=== PATIENT | female | born 1950 | race Caucasian/White ===

== ENCOUNTER 2018-09-17 10:17 | Outpatient (AMBR) | payer MEDICARE, MEDICAID, SELFPAY ==
--- NOTE | 2018-09-17 10:39 | PT.OIERPT ---
PT OP Initial Eval Patient Information Visit Reasons: hip pain Medical Diagnosis: M25.551 Treatment Dx #1: R LE pain Start of Care: 09/17/18 Date of Onset: 3 months ago Initial Assessment Subjective Pt is 68 yr old female who c/o R LE pain from the hip down to the knee and the mid-tibia x3 months, not sure how it started. She says she can walk but it starts hurting after about 1-2 blocks. She has Hx of R knee sx x3 yrs and she gets shots in that knee. PLOF: full functional mobility without limit for ADL's and IADL's. She was walking about 2 miles a day. She lives with her and is on disability for her back issues. 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 PMH: HTN, thyroid disorder, R knee sx, Imaging: X-rays of R hip with provider Pt goal: for the pain to go away to walk at [employer] and stand longer Objective R hip AROM: Flexion: 80 deg Abduction: 15 deg SLR: 23 deg with pain in hip flexors Knee ArOM: Flexion: 90 deg Extension: full Trunk AROM: Extension: 20% SB: R full L: 80% with R hip pain provoked TTP: moderate of B SI joints and L5-S1 paraspinals Special testing: Hip scour: negative Hip IR: pain provoked with hip IR Lateral hip shear: negative Assessment Pt presents with limited hip flexor strength and pain is provoked deep in hip joint with hip IRot PROM and trunk SB to the L consistent with hip OA. Pt has limited hip strength, ROM and functional mobility due to pain. PT recommends further diagnostic imaging of R hip and L/S such as MRI due to high intensity of ssx and its impact on sleep and functional mobility. She has Hx of L/S injury so it may be radicular pain radiating into the LE but Pt has negative R SLR testing. Pt not likely to benefit from therapy at this time. 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
--- NOTE | 2018-09-17 10:42 | PTNOTE_ITS ---
PT OP Initial Eval Patient Information Visit Reasons: hip pain Medical Diagnosis: M25.551 Treatment Dx #1: R LE pain Start of Care: 09/17/18 Date of Onset: 3 months ago Initial Assessment Subjective Pt is 68 yr old female who c/o R LE pain from the hip down to the knee and the mid-tibia x3 months, not sure how it started. She says she can walk but it starts hurting after about 1-2 blocks. She has Hx of R knee sx x3 yrs and she gets shots in that knee. PLOF: full functional mobility without limit for ADL's and IADL's. She was walking about 2 miles a day. She lives with her and is on disability for her back issues. 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 PMH: HTN, thyroid disorder, R knee sx, Imaging: X-rays of R hip with provider Pt goal: for the pain to go away to walk at [employer] and stand longer Objective R hip AROM: Flexion: 80 deg Abduction: 15 deg SLR: 23 deg with pain in hip flexors Knee ArOM: Flexion: 90 deg Extension: full Trunk AROM: Extension: 20% SB: R full L: 80% with R hip pain provoked TTP: moderate of B SI joints and L5-S1 paraspinals Special testing: Hip scour: negative Hip IR: pain provoked with hip IR Lateral hip shear: negative Assessment Pt presents with limited hip flexor strength and pain is provoked deep in hip joint with hip IRot PROM and trunk SB to the L consistent with hip OA. Pt has limited hip strength, ROM and functional mobility due to pain. PT recommends further diagnostic imaging of R hip and L/S such as MRI due to high intensity of ssx and its impact on sleep and functional mobility. She has Hx of L/S injury so it may be radicular pain radiating into the LE but Pt has negative R SLR testing. Pt not likely to benefit from therapy at this time. Short Term and Piano Mover Goals Follow up with provider Eval and D/C Treatment Plan Eval and D/C Certification Dates: 09/17/18 to 10/15/18 Office Procedures PT Procedures PT Date of Service: 09/17/18 OP PT Eval Mod Complex 30 minutes: Yes
== END 2018-09-20 23:59 | disposition home or self-care (01) ==
PROVIDERS: PCP Physician Assistant Medical; Referring Provider Physician Assistant Medical; Visit Provider Physician Assistant Medical
DX: M25.551 Pain in right hip (principal)
CPT/HCPCS: 97162

== ENCOUNTER 2024-06-25 09:21 | Outpatient (AMB) | payer MEDICARE, SELFPAY ==
--- NOTE | 2024-06-25 09:39 | ORTHONT_ITS ---
Vital signs 06/25/24 09:40 Height 1.55 m Height Method Stated Weight 110.875 kg Weight Measurement Method Standing Scale BMI 46.1 BP 165/91 H Blood Pressure Source Automatic Cuff Blood Pressure Location Right Upper Arm Position Sitting Respiration 18 Pulse 93 Pulse Source Monitor Temp 97.6 F Temp Source Temporal Artery Scan Pulse Oximetry (%) 96 Oxygen Delivery Method Room Air Med/Allergies Allergies & Medications Allergies No Known Allergies Allergy (Verified 06/25/24 09:41) Medication Reconciliation atenolol 50 mg tablet 50 mg PO DAILY ##0 12/27/12 [History Confirmed 06/25/24] levothyroxine 200 mcg tablet (Levoxyl) 200 mcg PO DAILY ##0 12/27/12 [History Confirmed 06/25/24] lorazepam 2 mg tablet 2 mg PO TID NEEDED ##0 12/27/12 [History Confirmed 06/25/24] zolpidem 10 mg tablet (Ambien) 10 mg PO AT BEDTIME ##0 12/27/12 [History Confirmed 06/25/24] triamterene 37.5 mg-hydrochlorothiazide 25 mg tablet 1 tab PO QDAY 08/22/19 [History Confirmed 06/25/24] Subjective Visit Visit for: follow up visit, knee and injections Immunization / Flu Flu Vaccine in the Last 12 Months: No Flu Vaccine Exclusion Criteria: No Exclusion Criteria History of Present Illness Chief complaint: F/U KNEE INJECTION Patient is a 73-year-old female with right knee pain has been ongoing for a while. She had a history of a left total knee replacement and the recovery was rough. She does not want surgery at all. She has tried previous cortisone injections as well as physical therapy and Tylenol and ibuprofen. She previously had a scope as well. She would like another injection today Personal History Occupation: [employer] PMH: smoker (NON SMOKER ) Pain Pain level (0-10): 3 Pain duration: COMES AND GOES Pain location: inside (medial), outside (lateral), anterior and posterior Pain quality: sharp, dull and aching Pain timing: increases with activity Associated signs & symptoms: numbness, weakness and stiffness Ambulatory data Ambulatory device: none Treatments Improvement with previous injections: No Improvement with PT: No Improvement with NSAIDS: n/a Review of Systems Review of Systems: All systems negative unless otherwise noted in HPI. Exam Exam Patient is in no acute distress and is cooperative with the examination today. Breathing is nonlabored. Patient has a normal mood and affect. Bilateral extremities were evaluated and demonstrates sensation intact to light touch. Palpable pedal pulses are present. No significant edema is present. Bilateral hips were examined. The patient has no pain with log roll of the hips. Internal rotation to 30 degrees and external rotation to 30 degrees is painless. Negative FADIR. Left knee was examined today. The left knee is in reasonable alignment. Range of motion from 0-120 degrees. Knee is stable to varus and valgus as well as AP translation with <5mm. Patient has a negative McMurrays. There is no pain with patellofemoral compression and no crepitus noted. The knee is nontender to palpation. The right knee was also examined. The right knee is in varus alignment. Range of motion from 0-115 degrees. Knee is stable to varus and valgus as well as AP translation with <5mm. Patient has a negative McMurrays. There is no pain with patellofemoral compression and no crepitus noted. The knee is tender to palpation laterally X-rays demonstrate significant right knee osteoarthritis particular in the lateral compartment Assessment and Plan Problem List (1) Bilateral knee pain: Status: Acute Plan: 73-year-old female with severe right knee osteoarthritis who is failed conservative treatment. They do not want any surgery right now. They would like to try conservative management. We discussed cortisone as well as hyaluronic acid. She would like a cortisone injection today Recommend knee cortisone injection as patient would like to proceed with conservative treatment at this time. The risks and benefits of the procedure were reviewed with the patient and patient gave verbal consent to continue with the procedure. Procedure: performed by Dr. Diggs Using sterile technique the Right knee was thoroughly prepped with alcohol, and approximately 1 cc of Kenalog 40 mg/mL and 4 cc of 1% lidocaine was injected without resistance into the medial tibial femoral joint space. The patient t olerated the procedure. (2) Unilateral primary osteoarthritis, right knee: Status: Acute Advanced Care Planning Discussion Advance care planning discussed with:: patient Office Procedures GNS Level of Care Nursing/Assessment Patient Status: Established Patient Nursing Assessment/Reassesment: Medication Reconciliation, Update PMH in EMR and Vital Signs Coordination of Care: Complex Care and Chronic Disease 1-5, Education Complex Pt/Fam, Consent,records obtained, informed consent, Results/Orders obtained and Staff clarify orders Established Patient Charge Established Patient Point Assignment: 95 Established Patient Point Charge: EP Level 3 (80-115) Surgical Proc/IM SQ injection Major Surgical Procedure: Yes (RIGHT KNEE INJECTION) Medication Given Medication Given Medication Given: Yes Documented Dose Given: 4 Route: Infiitration Medication Given Medication Given Medication Given: Yes Documented Dose Given: 1 Route: Infiitration Office Meds Xylocaine 10 mg/mL (1 %) injection solution Performing Provider: Kwabena Diggs MD Performing Location: [facility] Administered by: Kathleen Wolf on 06/25/24 09:49 Dose Route Admin Location Dispensed Lot Number Expiration Date [employer] Digitizer 20 mL Infiltration 20 mL [id number] 03/22/27 33259-090-18 [employer] triamcinolone acetonide 40 mg/mL suspension for injection Performing Provider: Kwabena Diggs MD Performing Location: [facility] Administered by: Kwabena Diggs MD on 06/25/24 09:49 Dose Route Admin Location Dispensed Lot Number Expiration Date [employer]izer 40 mg Infiltration 1 mL [id number] 12/20/25 7858-8733-81 [employer] Past Medical History Past Medical History Have you ever been diagnosed with any of the following: Neurological Problems Seizures: No Cardiology Problems Coronary Artery Disease: Yes Hypercholesterolemia: Yes Congestive Heart Failure: No Hypertension: Yes Respiratory Problems Chronic Obstructive Pulmonary Disease (COPD): No Smoking: No Smoking Cessation Counseling: No Smoking Exposure: No Tobacco Use: No Stomache/Intestinal Problems Obesity: Yes Genital/Urinary Problems Renal Disease: No Reproductive Problems Previous Pregnancies: Yes Musculoskeletal Problems Arthritis: Yes Endocrine Problems Diabetes Mellitus Type 1: No Diabetes Mellitus Type 2: No Hypothyroidism: Yes Blood Problems Anemia: No Psychologic Problems Anxiety: Yes Other Problems Hospitalization: No Falls: No Blood Transfusions: No Anesthesia Reactions: No MRSA: No Chicken Pox: Yes Cancer: No
[2024-06-25 09:40] VITALS: BP 165/91; PULSE 93; RESP 18; TEMP 36.4; O2SAT 96; BMI 46.1
== END 2024-06-25 10:02 | disposition home or self-care (01) ==
LOC: HODSRG 09:21
PROVIDERS: PCP Physician Assistant Medical; Referring Provider Physician Assistant Medical; Supervising Provider Orthopaedic Surgery Adult Reconstructive Orthopaedic Surgery; Visit Provider Orthopaedic Surgery Adult Reconstructive Orthopaedic Surgery
DX: M25.561 Pain in right knee (principal); M25.562 Pain in left knee; M17.11 Unilateral primary osteoarthritis, right knee; I10 Essential (primary) hypertension; E78.00 Pure hypercholesterolemia, unspecified; I25.10 Atherosclerotic heart disease of native coronary artery without angina pectoris
CPT/HCPCS: 20610; 99213; J3301; J3490; G0463

== ENCOUNTER 2024-09-27 11:37 | Outpatient (AMB) | payer MEDICARE, MEDICAID, SELFPAY ==
[2024-09-27 11:47] VITALS: BP 159/83; PULSE 104; RESP 18; TEMP 36.4; O2SAT 90; BMI 46.1
--- NOTE | 2024-09-27 11:47 | PD.ORTHCLVIS ---
Vital signs 09/27/24 11:47 Height 1.55 m Height Method Stated Weight 110.818 kg Weight Measurement Method Standing Scale BMI 46.1 BP 159/83 H Blood Pressure Source Automatic Cuff Blood Pressure Location Left Upper Arm Position Sitting Respiration 18 Pulse 104 H Pulse Source Monitor Temp 97.6 F Temp Source Temporal Artery Scan Pulse Oximetry (%) 90 L Oxygen Delivery Method Room Air Med/Allergies Allergies & Medications Allergies No Known Allergies Allergy (Verified 09/27/24 11:47) Medication Reconciliation atenolol 50 mg tablet 50 mg PO DAILY ##0 12/27/12 [History Confirmed 09/27/24] levothyroxine 200 mcg tablet (Levoxyl) 200 mcg PO DAILY ##0 12/27/12 [History Confirmed 09/27/24] lorazepam 2 mg tablet 2 mg PO TID NEEDED ##0 12/27/12 [History Confirmed 09/27/24] zolpidem 10 mg tablet (Ambien) 10 mg PO AT BEDTIME ##0 12/27/12 [History Confirmed 09/27/24] triamterene 37.5 mg-hydrochlorothiazide 25 mg tablet 1 tab PO QDAY 08/22/19 [History Confirmed 09/27/24] Exam Exam Patient is in no acute distress and is cooperative with the examination today. Breathing is nonlabored. Patient has a normal mood and affect. Bilateral extremities were evaluated and demonstrates sensation intact to light touch. Palpable pedal pulses are present. No significant edema is present. Bilateral hips were examined. The patient has no pain with log roll of the hips. Internal rotation to 30 degrees and external rotation to 30 degrees is painless. Negative FADIR. Left knee was examined today. The left knee is in reasonable alignment. Range of motion from 0-120 degrees. Knee is stable to varus and valgus as well as AP translation with <5mm. Patient has a negative McMurrays. There is no pain with patellofemoral compression and no crepitus noted. The knee is nontender to palpation. The right knee was also examined. The right knee is in varus alignment. Range of motion from 0-115 degrees. Knee is stable to varus and valgus as well as AP translation with <5mm. Patient has a negative McMurrays. There is no pain with patellofemoral compression and no crepitus noted. The knee is tender to palpation laterally X-rays demonstrate significant right knee osteoarthritis particular in the lateral compartment Assessment and Plan Problem List (1) Bilateral knee pain: Status: Acute Plan: 73-year-old female with severe right knee osteoarthritis who has failed conservative treatment. They do not want any surgery right now. They would like to try conservative management. We discussed cortisone as well as hyaluronic acid. She would like a hyaluronic acid injection today Recommend knee cortisone injection as patient would like to proceed with conservative treatment at this time. The risks and benefits of the procedure were reviewed with the patient and patient gave verbal consent to continue with the procedure. Procedure: performed by Dr. Diggs Using sterile technique the Right knee was thoroughly prepped with alcohol, and The entire syringe of Synvisc 1 was injected without resistance into the medial tibial femoral joint space. The patient tolerated the procedure. (2) Unilateral primary osteoarthritis, right knee: Status: Acute Advanced Care Planning Discussion Advance care planning discussed with:: patient Office Procedures GNS Level of Care Nursing/Assessment Patient Status: Established Patient Nursing Assessment/Reassesment: Medication Reconciliation, Update PMH in EMR and Vital Signs Coordination of Care: Complex Care and Chronic Disease 1-5, Education Complex Pt/Fam, Consent,records obtained, informed consent, Results/Orders obtained and Staff clarify orders Established Patient Charge Established Patient Point Assignment: 95 Established Patient Point Charge: EP Level 3 (80-115) Surgical Proc/IM SQ injection Major Surgical Procedure: Yes (GEL INJECTION) Medication Given Medication Given Medication Given: Yes Documented Dose Given: 6 Route: Infiitration Office Meds Hyalgan 10 mg/mL intra-articular syringe Performing Provider: Kwabena Diggs MD Performing Location: [facility] Administered by: Kwabena Diggs MD on 09/27/24 12:06 Dose Route Admin Location Dispensed Lot Number Expiration Date [facility] Research Director 20 mg intra-articular 2 mL [id number] 01/20/27 [address]-0 MA Intake Visit Data Collection New Patient or Established: Established Patient (seen at [facility] within 3 years) Reason for Visit:: F/U RIGHT KNEE PAIN/REQUESTING GEL INJECTION Seen by Clinical Staff ONLY (RN/MA): No 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 PCP or OBGYN visit in last 3 months: Yes Hx Now: No Do You Feel Safe at Home: Yes Authorities Contacted: N/A Questionairres Past Medical History Past Medical History Have you ever been diagnosed with any of the following: Neurological Problems Seizures: No Cardiology Problems Coronary Artery Disease: Yes Hypercholesterolemia: Yes Congestive Heart Failure: No Hypertension: Yes Respiratory Problems Chronic Obstructive Pulmonary Disease (COPD): No Smoking: No Smoking Cessation Counseling: No Smoking Exposure: No Tobacco Use: No Stomache/Intestinal Problems Obesity: Yes Genital/Urinary Problems Renal Disease: No Reproductive Problems Previous Pregnancies: Yes Musculoskeletal Problems Arthritis: Yes Endocrine Problems Diabetes Mellitus Type 1: No Diabetes Mellitus Type 2: No Hypothyroidism: Yes Blood Problems Anemia: No Psychologic Problems Anxiety: Yes Other Problems Hospitalization: No Falls: No Blood Transfusions: No Anesthesia Reactions: No MRSA: No Chicken Pox: Yes Cancer: No Subjective Visit Visit for: follow up visit, knee and injections (GEL) Immunization / Flu Flu Vaccine in the Last 12 Months: No Flu Vaccine Exclusion Criteria: No Exclusion Criteria History of Present Illness Chief complaint: Right knee pain Patient is a 74-year-old female with right knee arthritis who is nonoperative candidate at this time. We have tried multiple injections in the past. She would like a gel injection today as she has not tried 1 before. We did get authorization for this. Pain Pain level (0-10): 8 Pain duration: CONSTANT Pain location: inside (medial) and anterior Pain quality: dull and aching Pain timing: night, increases with activity and stairs Ambulatory data Ambulatory device: none Treatments Improvement with previous injections: No Improvement with PT: No Improvement with NSAIDS: no Review of Systems Review of Systems: All systems negative unless otherwise noted in HPI.
== END 2024-09-27 13:05 | disposition home or self-care (01) ==
LOC: HODSRG 11:37
PROVIDERS: PCP Physician Assistant Medical; Referring Provider Physician Assistant Medical; Supervising Provider Orthopaedic Surgery Adult Reconstructive Orthopaedic Surgery; Visit Provider Orthopaedic Surgery Adult Reconstructive Orthopaedic Surgery
DX: M25.561 Pain in right knee (principal); M25.562 Pain in left knee; M17.11 Unilateral primary osteoarthritis, right knee; I10 Essential (primary) hypertension; E78.00 Pure hypercholesterolemia, unspecified; I25.10 Atherosclerotic heart disease of native coronary artery without angina pectoris
CPT/HCPCS: 20610; 99213; G0463; J7325

== ENCOUNTER 2024-10-31 11:03 | Outpatient (AMB) | payer MEDICARE, MEDICAID, SELFPAY ==
[2024-10-31 11:25] VITALS: BP 165/66; PULSE 73; RESP 18; TEMP 36.5; O2SAT 92; BMI 45.5
--- NOTE | 2024-10-31 11:25 | ORTHONT_ITS ---
Vital signs 10/31/24 11:25 Height 1.55 m Height Method Stated Weight 109.429 kg Weight Measurement Method Standing Scale BMI 45.5 BP 165/66 H Blood Pressure Source Automatic Cuff Blood Pressure Location Left Upper Arm Position Sitting Respiration 18 Pulse 73 Pulse Source Monitor Temp 97.7 F Temp Source Temporal Artery Scan Pulse Oximetry (%) 92 L Oxygen Delivery Method Room Air Med/Allergies Allergies & Medications Allergies No Known Allergies Allergy (Verified 10/31/24 11:26) Medication Reconciliation atenolol 50 mg tablet 50 mg PO DAILY ##0 12/27/12 [History Confirmed 10/31/24] levothyroxine 200 mcg tablet (Levoxyl) 200 mcg PO DAILY ##0 12/27/12 [History Confirmed 10/31/24] lorazepam 2 mg tablet 2 mg PO TID NEEDED ##0 12/27/12 [History Confirmed 10/31/24] zolpidem 10 mg tablet (Ambien) 10 mg PO AT BEDTIME ##0 12/27/12 [History Confirmed 10/31/24] triamterene 37.5 mg-hydrochlorothiazide 25 mg tablet 1 tab PO QDAY 08/22/19 [History Confirmed 10/31/24] Exam Exam Patient is in no acute distress and is cooperative with the examination today. Breathing is nonlabored. Patient has a normal mood and affect. Bilateral extremities were evaluated and demonstrates sensation intact to light touch. Palpable pedal pulses are present. No significant edema is present. Bilateral hips were examined. The patient has no pain with log roll of the hips. Internal rotation to 30 degrees and external rotation to 30 degrees is painless. Negative FADIR. Left knee was examined today. The left knee is in reasonable alignment. Range of motion from 0-120 degrees. Knee is stable to varus and valgus as well as AP translation with <5mm. Patient has a negative McMurrays. There is no pain with patellofemoral compression and no crepitus noted. The knee is nontender to palpation. The right knee was also examined. The right knee is in varus alignment. Range of motion from 0-115 degrees. Knee is stable to varus and valgus as well as AP translation with <5mm. Patient has a negative McMurrays. There is no pain with patellofemoral compression and no crepitus noted. The knee is tender to palpation laterally X-rays demonstrate significant right knee osteoarthritis particular in the lateral compartment Assessment and Plan Problem List (1) Bilateral knee pain: Status: Acute Plan: 73-year-old female with severe right knee osteoarthritis who has failed conservative treatment. They do not want any surgery right now. They would like to try conservative management. We will try a cortisone injection today Recommend knee cortisone injection as patient would like to proceed with conservative treatment at this time. The risks and benefits of the procedure were reviewed with the patient and patient gave verbal consent to continue with the procedure. Procedure: performed by Dr. Diggs Using sterile technique the Right knee was thoroughly prepped with alcohol, and approximately 1 cc of Kenalog 40 mg/mL and 4 cc of 1% lidocaine was injected without resistance into the medial tibial femoral joint space. The patient tolerated the procedure. (2) Unilateral primary osteoarthritis, right knee: Status: Acute Advanced Care Planning Discussion Advance care planning discussed with:: patient Office Procedures GNS Level of Care Nursing/Assessment Patient Status: Established Patient Nursing Assessment/Reassesment: Medication Reconciliation, Update PMH in EMR and Vital Signs Coordination of Care: Complex Care and Chronic Disease 1-5, Education Complex Pt/Fam, Consent,records obtained, informed consent, Results/Orders obtained and Staff clarify orders Established Patient Charge Established Patient Point Assignment: 95 Established Patient Point Charge: EP Level 3 (80-115) MA Intake Visit Data Collection New Patient or Established: Established Patient (seen at [facility] within 3 years) Reason for Visit:: F/U KNEE PAIN/GEL INJ DIDNT WORK Seen by Clinical Staff ONLY (RN/MA): No 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 PCP or OBGYN visit in last 3 months: Yes Hx Now: No Do You Feel Safe at Home: Yes Authorities Contacted: N/A Questionairres Past Medical History Past Medical History Have you ever been diagnosed with any of the following: Neurological Problems Seizures: No Cardiology Problems Coronary Artery Disease: Yes Hypercholesterolemia: Yes Congestive Heart Failure: No Hypertension: Yes Respiratory Problems Chronic Obstructive Pulmonary Disease (COPD): No Smoking: No Smoking Cessation Counseling: No Smoking Exposure: No Tobacco Use: No Stomache/Intestinal Problems Obesity: Yes Genital/Urinary Problems Renal Disease: No Reproductive Problems Previous Pregnancies: Yes Musculoskeletal Problems Arthritis: Yes Endocrine Problems Diabetes Mellitus Type 1: No Diabetes Mellitus Type 2: No Hypothyroidism: Yes Blood Problems Anemia: No Psychologic Problems Anxiety: Yes Other Problems Hospitalization: No Falls: No Blood Transfusions: No Anesthesia Reactions: No MRSA: No Chicken Pox: Yes Cancer: No Subjective Visit Visit for: follow up visit and knee Immunization / Flu Flu Vaccine in the Last 12 Months: No Flu Vaccine Exclusion Criteria: No Exclusion Criteria History of Present Illness Chief complaint: Right knee pain Patient is a 74-year-old female with right knee arthritis who is nonoperative candidate at this time. We have tried multiple injections in the past. She reports the gel injection did not help at all and she made it worse. She would like a right knee injection of cortisone today. She was recently put on Wegovy and is trying to lose weight Pain Pain level (0-10): 8 Pain duration: CONSTANT Pain location: anterior Pain quality: sharp, dull and aching Pain timing: increases with activity and stairs Associated signs & symptoms: weakness Ambulatory data Ambulatory device: none Treatments Number of previous injections: 4 Improvement with previous injections: No Improvement with PT: No Improvement with NSAIDS: no Review of Systems Review of Systems: All systems negative unless otherwise noted in HPI.
--- NOTE | 2024-10-31 11:46 | XR_ITS ---
Examination: Bilateral knees 2 views Right lateral knee left lateral knee 2 views Bilateral axial knees single view Technique: Bilateral AP knees standing single view, bilateral PA knees standing single view flexion Standing right lateral knee left lateral knee 2 views Bilateral axial knees single view total 5 views Exam date and time: October 31, 2024 1213 hrs. Indications: Bilateral knee pain one month, history left knee replacement 8 years ago Findings: Moderate osteopenia Severe narrowing lateral joint space right knee [id number] Significant narrowing right patellofemoral joint No fracture Total left knee arthroplasty with satisfactory alignment Impression: Severe narrowing lateral joint space right knee, [id number] Significant narrowing right patellofemoral joint
== END 2024-10-31 12:00 | disposition home or self-care (01) ==
LOC: HODSRG 11:03
PROVIDERS: PCP Physician Assistant Medical; Referring Provider Physician Assistant Medical; Supervising Provider Orthopaedic Surgery Adult Reconstructive Orthopaedic Surgery; Visit Provider Orthopaedic Surgery Adult Reconstructive Orthopaedic Surgery
DX: M25.561 Pain in right knee (principal); M25.562 Pain in left knee; M17.11 Unilateral primary osteoarthritis, right knee; I10 Essential (primary) hypertension; E78.00 Pure hypercholesterolemia, unspecified; I25.10 Atherosclerotic heart disease of native coronary artery without angina pectoris
CPT/HCPCS: 20610; 73564; 99213; J3301; J3490; G0463

== ENCOUNTER 2025-02-11 09:19 | Outpatient (AMB) | payer MEDICARE, MEDICAID, SELFPAY ==
--- NOTE | 2025-02-11 10:01 | PD.ORTHCLVIS ---
Vital signs 02/11/25 10:03 Height 1.55 m Height Method Stated Weight 100.754 kg Weight Measurement Method Standing Scale BMI 41.9 BP 127/67 Blood Pressure Source Automatic Cuff Blood Pressure Location Left Upper Arm Position Sitting Respiration 18 Pulse 105 H Pulse Source Monitor Temp 97.6 F Temp Source Temporal Artery Scan Pulse Oximetry (%) 88 L Oxygen Delivery Method Room Air Med/Allergies Allergies & Medications Allergies No Known Allergies Allergy (Verified 02/11/25 10:04) Medication Reconciliation atenolol 50 mg tablet 50 mg PO DAILY ##0 12/27/12 [History Confirmed 02/11/25] levothyroxine 200 mcg tablet (Levoxyl) 200 mcg PO DAILY ##0 12/27/12 [History Confirmed 02/11/25] lorazepam 2 mg tablet 2 mg PO TID NEEDED ##0 12/27/12 [History Confirmed 02/11/25] zolpidem 10 mg tablet (Ambien) 10 mg PO AT BEDTIME ##0 12/27/12 [History Confirmed 02/11/25] triamterene 37.5 mg-hydrochlorothiazide 25 mg tablet 1 tab PO QDAY 08/22/19 [History Confirmed 02/11/25] Exam Exam Patient is in no acute distress and is cooperative with the examination today. Breathing is nonlabored. Patient has a normal mood and affect. Bilateral extremities were evaluated and demonstrates sensation intact to light touch. Palpable pedal pulses are present. No significant edema is present. Bilateral hips were examined. The patient has no pain with log roll of the hips. Internal rotation to 30 degrees and external rotation to 30 degrees is painless. Negative FADIR. Left knee was examined today. The left knee is in reasonable alignment. Range of motion from 0-120 degrees. Knee is stable to varus and valgus as well as AP translation with <5mm. Patient has a negative McMurrays. There is no pain with patellofemoral compression and no crepitus noted. The knee is nontender to palpation. The right knee was also examined. The right knee is in varus alignment. Range of motion from 0-115 degrees. Knee is stable to varus and valgus as well as AP translation with <5mm. Patient has a negative McMurrays. There is no pain with patellofemoral compression and no crepitus noted. The knee is tender to palpation laterally X-rays demonstrate significant right knee osteoarthritis particular in the lateral compartment Assessment and Plan Problem List (1) Bilateral knee pain: Status: Acute Plan: 73-year-old female with severe right knee osteoarthritis who has failed conservative treatment. They do not want any surgery right now. They would like to try conservative management. We will try a cortisone injection today Recommend knee cortisone injection as patient would like to proceed with conservative treatment at this time. The risks and benefits of the procedure were reviewed with the patient and patient gave verbal consent to continue with the procedure. Procedure: performed by Dr. Diggs Using sterile technique the Right knee was thoroughly prepped with alcohol, and approximately 1 cc of Kenalog 40 mg/mL and 4 cc of 1% lidocaine was injected without resistance into the medial tibial femoral joint space. The patient tolerated the procedure. (2) Unilateral primary osteoarthritis, right knee: Status: Acute Advanced Care Planning Discussion Advance care planning discussed with:: patient Office Procedures GNS Level of Care Nursing/Assessment Patient Status: Established Patient Nursing Assessment/Reassesment: Medication Reconciliation, Update PMH in EMR and Vital Signs Coordination of Care: Complex Care and Chronic Disease 1-5, Education Complex Pt/Fam, Consent,records obtained, informed consent, Results/Orders obtained and Staff clarify orders Established Patient Charge Established Patient Point Assignment: 95 Established Patient Point Charge: EP Level 3 (80-115) Surgical Proc/IM SQ injection Major Surgical Procedure: Yes (KNEE INJECTION) Medication Given Medication Given Medication Given: Yes Documented Dose Given: 4 Route: Infiitration Medication Given Medication Given Medication Given: Yes Documented Dose Given: 1 Route: Infiitration Office Meds Xylocaine 10 mg/mL (1 %) injection solution Performing Provider: Kawbena Diggs MD Performing Location: [facility] Administered by: Kwabena Diggs MD on 02/11/25 10:17 Dose Route Admin Location Dispensed Lot Number Expiration Date [facility] [employer] Occupational Therapist 20 mL Infiltration 20 mL [id number] 04/22/28 50050-961-78 [employer] triamcinolone acetonide 40 mg/mL suspension for injection Performing Provider: Kwabena Diggs MD Performing Location: [facility] Administered by: Reed Dominguez [email or web address], A on 02/11/25 10:17 Dose Route Admin Location Dispensed Lot Number Expiration Date [facility] [employer] Occupational Therapist 40 mg intra-articular KNEE 1 mL [id number] 08/22/26 90940-321-96 ANICETO ROBLES MA Intake Visit Data Collection New Patient or Established: Established Patient (seen at [facility] within 3 years) Reason for Visit:: RIGHT KNEE INJ F/U WEIGHT LOSS Seen by Clinical Staff ONLY (RN/MA): No Electrical Hardware Engineer Required: No PCP or OBGYN visit in last 3 months: Yes Hx Now: No Do You Feel Safe at Home: Yes Authorities Contacted: N/A Questionairres Past Medical History Past Medical History Have you ever been diagnosed with any of the following: Neurological Problems Seizures: No Cardiology Problems Coronary Artery Disease: Yes Hypercholesterolemia: Yes Congestive Heart Failure: No Hypertension: Yes Respiratory Problems Chronic Obstructive Pulmonary Disease (COPD): No Smoking: No Smoking Cessation Counseling: No Smoking Exposure: No Tobacco Use: No Stomache/Intestinal Problems Obesity: Yes Genital/Urinary Problems Renal Disease: No Reproductive Problems Previous Pregnancies: Yes Musculoskeletal Problems Arthritis: Yes Endocrine Problems Diabetes Mellitus Type 1: No Diabetes Mellitus Type 2: No Hypothyroidism: Yes Blood Problems Anemia: No Psychologic Problems Anxiety: Yes Other Problems Hospitalization: No Falls: No Blood Transfusions: No Anesthesia Reactions: No MRSA: No Chicken Pox: Yes Cancer: No Subjective Visit Visit for: follow up visit and knee Immunization / Flu Flu Vaccine in the Last 12 Months: No Flu Vaccine Exclusion Criteria: No Exclusion Criteria History of Present Illness Chief complaint: Right knee pain Patient is a 74-year-old female with right knee arthritis who is nonoperative candidate at this time. We have tried multiple injections in the past. She reports the gel injection did not help at all and she made it worse. She would like a right knee injection of cortisone today. He has lost some weight since we last saw her Pain Pain level (0-10): 10 Pain duration: CONSTANT Pain location: anterior Pain quality: sharp Pain timing: night and increases with activity Associated signs & symptoms: none Ambulatory data Ambulatory device: none Treatments Number of previous injections: 1 Improvement with previous injections: No Improvement with PT: No Improvement with NSAIDS: no Review of Systems Review of Systems: All systems negative unless otherwise noted in HPI.
[2025-02-11 10:03] VITALS: BP 127/67; PULSE 105; RESP 18; TEMP 36.4; O2SAT 88; BMI 41.9
== END 2025-02-11 10:20 | disposition home or self-care (01) ==
LOC: HODSRG 09:19
PROVIDERS: PCP Physician Assistant Medical; Referring Provider Physician Assistant Medical; Supervising Provider Orthopaedic Surgery Adult Reconstructive Orthopaedic Surgery; Visit Provider Orthopaedic Surgery Adult Reconstructive Orthopaedic Surgery
DX: M17.11 Unilateral primary osteoarthritis, right knee (principal); M25.562 Pain in left knee; M25.561 Pain in right knee; I10 Essential (primary) hypertension; E78.00 Pure hypercholesterolemia, unspecified; I25.10 Atherosclerotic heart disease of native coronary artery without angina pectoris; E03.9 Hypothyroidism, unspecified
CPT/HCPCS: 20610; 99213; J3301; J3490; G0463